=== PATIENT | male | born 1975 ===

== ENCOUNTER 2016-07-28 08:55 | Inpatient (IN) | payer OTHER ==
[2016-07-28] MEDS ORDERED: Sodium Chloride 0.9% 1,000 ML IV STA (09:38)
[2016-07-28] MEDS ORDERED: Lidocaine 5% Patch TD ONE (10:00)
[2016-07-28] MEDS ORDERED: Dexamethasone 10 MG in Sodium Chloride 0.9% 50 ML IV ONE (10:00)
--- NOTE | 2016-07-28 10:17 | ED PDOC ---
HPI: Back Time Seen by Provider: 07/28/16 09:17 Chief Complaint (Nursing): Back Pain Chief Complaint (Provider): Back Pain History Per: Patient History/Exam Limitations: no limitations Onset/Duration Of Symptoms: Days Current Symptoms Are (Timing): Still Present Quality Of Discomfort: "Pain" Severity: Moderate Previous Symptoms: None Associated Symptoms: None Additional Complaint(s): Patient is a 41 year old male who presents to ED for right lower back pain that began 9 days ago. Patient states pain began while sweeping felt like he" strained his back" with pain that worsened 2 days. Patient notes that he went to acupuncture, took a left over Percocet all without relief. Denies numbness, tingling or urinary changes. Notes mild pain to the right leg with attempts to ambulate. Applying a heat patch to area without relief . Past Medical History Reviewed: Historical Data, Nursing Documentation, Vital Signs Vital Signs: Last Vital Signs Temp 98.7 F 07/28/16 09:14 Pulse 76 07/28/16 09:14 Resp 18 07/28/16 09:14 BP 134/79 07/28/16 09:14 Pulse Ox 98 07/28/16 09:14 - Medical History PMH: No Chronic Diseases Denies: Chronic Kidney Disease - Surgical History Surgical History: No Surg Hx - Family History Family History: States: No Known Family Hx - Home Medications Home Medications: Ambulatory Orders Medication Instructions Recorded Cyclobenzaprine [Flexeril] 10 mg PO TID PRN #30 tab 07/30/16 Gabapentin [Neurontin] 300 mg PO BID #30 cap 07/30/16 Ibuprofen [Motrin Tab] 800 mg PO Q8H PRN #30 tab 07/30/16 oxyCODONE/Acetaminophen [Percocet 1 ea PO Q4 PRN #20 tab 07/30/16 5/325 mg Tab] - Allergies Allergies/Adverse Reactions: Allergies Allergy/AdvReac Type Severity Reaction Status Date / Time No Known Allergies Allergy Verified 07/28/16 09:36 Review of Systems ROS Statement: Except As Marked, All Systems Reviewed And Found Negative Constitutional: Negative for: Fever, Weakness Eyes: Negative for: Vision Change Genitourinary Male: Negative for: Dysuria, Frequency, Incontinence Musculoskeletal: Positive for: Back Pain, Leg Pain. Negative for: Neck Pain Neurological: Negative for: Weakness, Numbness Physical Exam - Reviewed Nursing Documentation Reviewed: Yes Vital Signs Reviewed: Yes - Physical Exam Appears: Positive for: Non-toxic, No Acute Distress Skin: Positive for: Normal Color, Warm Eye Exam: Positive for: Normal appearance Neck: Positive for: Normal, Painless ROM Gastrointestinal/Abdominal: Positive for: Normal Exam. Negative for: Tenderness , Distended Back: Positive for: Normal Inspection, Other (right lwoer lumbar and buttock tenderness. Full ROM hip). Negative for: Vertebral Tenderness, Decreased ROM Extremity: Positive for: Normal ROM Neurologic/Psych: Positive for: Alert, Oriented. Negative for: Motor/Sensory Deficits - Laboratory Results Result Diagrams: 07/30/16 05:25 07/30/16 05:25 - ECG O2 Sat by Pulse Oximetry: 98 (RA) Pulse Ox Interpretation: Normal Medical Decision Making Medical Decision Making: Time: 929 Initial impression: Back pain, Sciatica vs Lumbalgia Initial plan: -- Decadron -- Lidoderm patch -- NS bolus -- Toradol -- Valium 1145am pain persisting cannot ambulate; CT LS spine ordered. 1230pm placed in ED Observation given inability to ambulate with comorbidity of morbid obesity, severe low back pain. 230pm CT report reviewed, additional pain medication ordered as remains unable to get himself out of bed 4pm no improvement unable to ambulate and self-rise from bed, pain management Dr Corley to evaluate Accession No. : [id number] Patient Name / ID : IRWIN SANABRIA / [id number] Exam Date : 07/28/2016 13:37:15 ( Approved ) Study Comment : Sex / Age : M / [id number] Creator : Isaiah Mccormick MD Dictator : Isaiah Mccormick MD Pearl Maker : Asset Management Coordinator : Isaiah Mccormick MD Approver2 : Report Date : 07/28/2016 14:14:13 My Comment : PROCEDURE: CT Lumbar Spine without contrast HISTORY: low back pain radiating R leg COMPARISON: None. TECHNIQUE: Axial computed tomography images were obtained of the lumbar spine without the use of intravenous contrast. Coronal and sagittal reformatted images were created and reviewed. Radiation dose: Total exam DLP = 1489.22 mGy-cm. This CT exam was performed using one or more of the following dose reduction techniques: Automated exposure control, adjustment of the mA and/or kV according to patient size, and/or use of iterative reconstruction technique. FINDINGS: VERTEBRAE: No acute compression fractures nor retropulsed fragments. Vertebral bodies exhibit relatively normal stature. Minimal chronic appearing anterior stature loss of the T12 segment felt to be degenerative in origin. The remaining vertebral bodies otherwise exhibit normal stature. There appears to be a very subtle subclinical dextroscoliosis centered in the lower thoracic region Vertebral bodies otherwise exhibit normal alignment. Facets normally aligned. DISCS/SPINAL CANAL/NEURAL FORAMINA: There is mild disc space narrowing seen at the L5-S1 level more so along the posterior disc margin. Small broad-based disc bulge ridge complex results in some minimal flattening of the ventral surface of thecal sac however the overall central canal appears adequate. Facets are mildly overgrown. Exit foramina appear adequate. At the L4-L5 level, there is relatively adequate disc height. Small broad- based asymmetric disc bulge ridge complex slightly larger on the right than left with some extension into the proximal inferior margin of the right exit foramen. Changes result in some minor flattening the ventral surface of the thecal sac however the overall central canal is quite capacious. Facets are slightly overgrown. The exit foramina are adequate. Note made of minor degenerative changes left SI joint. PARASPINAL SOFT TISSUES: Unremarkable. OTHER FINDINGS: None. IMPRESSION: No acute fracture seen. Minor multilevel degenerative spondylosis as described Re-evals: 520pm- Dr Corley pain mgmt evaluated patient recommended MRI LS spine and med surg Obs will need acute interventional pain management via injection for pain relief. Patient cannot ambulate in ED due to pain, nor can raise self from bed. 540p d/w PMD group Humberto Mosley ANP for admission med surg obs. Basic labs pending. Scribe Attestation: Documented by Hollie Husain acting as a scribe for Teodoro Lopez DO MD Scribe Attestation: All medical record entries made by the Scribe were at my direction and personally dictated by me. I have reviewed the chart and agree that the record accurately reflects my personal performance of the history, physical exam, medical decision making, and the department course for this patient. I have also personally directed, reviewed, and agree with the discharge instructions and disposition. Disposition - Clinical Impression Clinical Impression: Back pain - Patient ED Disposition Is Patient to be Admitted: Yes Counseled Patient/Family Regarding: Studies Performed, Diagnosis - Disposition Disposition Time: 12:39 Condition: STABLE - Pt Status Changed To: Hospital Disposition Of: Observation - POA Present On Arrival: None
--- NOTE | 2016-07-28 14:15 | CT ---
PROCEDURE: CT Lumbar Spine without contrast HISTORY: low back pain radiating R leg COMPARISON: None. TECHNIQUE: Axial computed tomography images were obtained of the lumbar spine without the use of intravenous contrast. Coronal and sagittal reformatted images were created and reviewed. Radiation dose: Total exam DLP = 1489.22 mGy-cm. This CT exam was performed using one or more of the following dose reduction techniques: Automated exposure control, adjustment of the mA and/or kV according to patient size, and/or use of iterative reconstruction technique. FINDINGS: VERTEBRAE: No acute compression fractures nor retropulsed fragments. Vertebral bodies exhibit relatively normal stature. Minimal chronic appearing anterior stature loss of the T12 segment felt to be degenerative in origin. The remaining vertebral bodies otherwise exhibit normal stature. There appears to be a very subtle subclinical dextroscoliosis centered in the lower thoracic region Vertebral bodies otherwise exhibit normal alignment. Facets normally aligned. DISCS/SPINAL CANAL/NEURAL FORAMINA: There is mild disc space narrowing seen at the L5-S1 level more so along the posterior disc margin. Small broad-based disc bulge ridge complex results in some minimal flattening of the ventral surface of thecal sac however the overall central canal appears adequate. Facets are mildly overgrown. Exit foramina appear adequate. At the L4-L5 level, there is relatively adequate disc height. Small broad-based asymmetric disc bulge ridge complex slightly larger on the right than left with some extension into the proximal inferior margin of the right exit foramen. Changes result in some minor flattening the ventral surface of the thecal sac however the overall central canal is quite capacious. Facets are slightly overgrown. The exit foramina are adequate. Note made of minor degenerative changes left SI joint. PARASPINAL SOFT TISSUES: Unremarkable. OTHER FINDINGS: None. IMPRESSION: No acute fracture seen. Minor multilevel degenerative spondylosis as described
[2016-07-28] MEDS ORDERED: HYDROmorphone 0.5 mg/0.5 ml ISec IVP STA (14:41)
[2016-07-28] MEDS: Oxycodone/Acetaminophen 5/325 mg Tab PO STA ×2 (16:32→17:19)
[2016-07-28] MEDS ORDERED: Oxycodone/Acetaminophen 5/325 mg Tab ONE (17:08)
--- NOTE | 2016-07-28 17:44 | CP.PCM.CON ---
History of Present Illness - History of Present Illness History of Present Illness: 41 yo man presented with acute lower back pain for 10 days. He twisted the wrong way while sweeping about 10 days ago and the pain continued to worsen despite rest and treatment, progressing to the point he couldn't walk over the weekend. He denies previous pain history prior to this episode. Pain is sharp , constant, over right lower back region. When upright the pain radiates into the right thigh. He denies paresthesia or incontinence or pain on the left side. He tried massage therapy and acupuncture x 1 session without relief. He tried Percocet/Zanaflex/Naproxen at home without relief. CT in ER showed L4-5, L5-S1 disc bulges. Past Patient History - Past Social History Smoking Status: Never Smoked - CARDIAC Hx Cardiac Disorders: No - PULMONARY Hx Respiratory Disorders: No - NEUROLOGICAL Hx Neurological Disorder: No - HEENT Hx HEENT Problems: No - RENAL Hx Chronic Kidney Disease: No - ENDOCRINE/METABOLIC Hx Endocrine Disorders: No - HEMATOLOGICAL/ONCOLOGICAL Hx Blood Disorders: No - INTEGUMENTARY Hx Dermatological Problems: No - MUSCULOSKELETAL/RHEUMATOLOGICAL Hx Musculoskeletal Disorders: No - GASTROINTESTINAL Hx Gastrointestinal Disorders: No - GENITOURINARY/GYNECOLOGICAL Hx Genitourinary Disorders: No - PSYCHIATRIC Hx Psychophysiologic Disorder: No Hx Substance Use: No - SURGICAL HISTORY Hx Surgeries: No - ANESTHESIA Hx Anesthesia: No Meds Allergies/Adverse Reactions: Allergies Allergy/AdvReac Type Severity Reaction Status Date / Time No Known Allergies Allergy Verified 07/28/16 09:36 Physical Exam - Back Exam Back exam: paraspinal tenderness, vertebral tenderness - Neurological Exam Additional comments: Sensory intact, motor diminished on right due to pain Results - Vital Signs Recent Vital Signs: Last Vital Signs Temp 98.7 F 07/28/16 09:14 Pulse 76 07/28/16 09:14 Resp 18 07/28/16 09:14 BP 134/79 07/28/16 09:14 Pulse Ox 98 07/28/16 14:43 Assessment & Plan - Assessment and Plan (Free Text) Assessment: 41 yo w/ acute lower back pain from L4-5, L5-S1 spondylotic changes. - MRI of lumbar spine - start Dilaudid 1mg IV q4h PRN - start Flexeril 10mg q8h - PT eval - pending MRI result, will consider injection tomorrow - hold NSAIDs for possible injection - NPO after midnight
[2016-07-28 18:11] LABS: BASO % 0.1 % (0.0-2.0); HEMATOCRIT 41.4 % (35.0-51.0); LYMPH # 0.6 K/uL (1.0-4.3); LYMPH % 9.9 % (20.0-40.0); MEAN CELL VOLUME 86.4 fl (80.0-94.0); MEAN CORPUSCULAR HEMOGLOBIN 29.2 pg (27.0-31.0); MEAN CORPUSCULAR HGB CONC 33.9 g/dL (33.0-37.0); MEAN PLATELET VOLUME 8.7 fl (7.2-11.7); MONO % 0.6 % (0.0-10.0); NEUT # 5.5 K/uL (1.8-7.0); NEUT % 89.4 % (50.0-75.0); NRBC % 0.1 % (0.0-0.0); PLATELET COUNT 175 K/uL (130-400); WHITE BLOOD COUNT 6.2 K/uL (4.8-10.8)
[2016-07-28 18:25] LABS: ALKALINE PHOSPHATASE 76 U/L (38-126); ALT/SGPT 48 U/L (21-72); AST/SGOT 32 U/L (17-59); BILIRUBIN,TOTAL 0.4 mg/dl (0.2-1.3); BLOOD UREA NITROGEN 15 mg/dl (9-20); CALCIUM 8.8 mg/dL (8.4-10.2); CARBON DIOXIDE 20 mmol/L (22-30); CHLORIDE 109 mmol/L (98-107); GFR AFRICAN-AMERICAN > 60; GLUCOSE,RANDOM 181 mg/dL (75-110); POTASSIUM 4.3 MMOL/L (3.6-5.0); SODIUM 143 mmol/l (132-148)
[2016-07-28 18:40] LABS: PARTIAL THROMBOPLASTIN TIME 25.9 SECONDS (23.3-32.5)
[2016-07-28 19:44] LABS: NEUTROPHIL 89 % (42-75); TOTAL CELLS COUNTED 100
[2016-07-29] MEDS: HYDROmorphone 0.5 mg/0.5 ml ISec IVP PRN ×3 (04:43→15:43)
--- NOTE | 2016-07-29 07:10 | CP.PCM.HP ---
History of Present Illness - History of Present Illness History of Present Illness: pt admitted for lumbar pain progressive x 10 days after swepping, after massage pt felt worse and was unable to walk. denies numbness/tingling in ble. mri noted:1. At L3-L4, mild disc desiccation. Disc bulge, prominent posterior epidural fat, and mild facet arthrosis with superimposed right extraforaminal disc protrusion result in mild to moderate canal stenosis and mild left and moderate right foraminal stenosis. 2. At L4-L5, right extraforaminal disc protrusion results in no canal and mild left and moderate right foraminal stenosis. bw and imaging noted anesthesia/pm/r on consult. possible injection today. no med/surg hx. Present on Admission - Present on Admission Any Indicators Present on Admission: No Review of Systems - Musculoskeletal Musculoskeletal: As Per HPI, Back Pain Past Patient History - Past Medical History & Family History Past Medical History?: Yes - Past Social History Smoking Status: electronic - CARDIAC Hx Cardiac Disorders: No - PULMONARY Hx Respiratory Disorders: No - NEUROLOGICAL Hx Neurological Disorder: No - HEENT Hx HEENT Problems: No - RENAL Hx Chronic Kidney Disease: No - ENDOCRINE/METABOLIC Hx Endocrine Disorders: No - HEMATOLOGICAL/ONCOLOGICAL Hx Blood Disorders: No - INTEGUMENTARY Hx Dermatological Problems: No - MUSCULOSKELETAL/RHEUMATOLOGICAL Hx Musculoskeletal Disorders: No Hx Falls: No - GASTROINTESTINAL Hx Gastrointestinal Disorders: No - GENITOURINARY/GYNECOLOGICAL Hx Genitourinary Disorders: No - PSYCHIATRIC Hx Psychophysiologic Disorder: No Hx Substance Use: No - SURGICAL HISTORY Hx Surgeries: Yes Other/Comment: Right Plantar Fasciitis - 4 years ago - ANESTHESIA Hx Anesthesia: Yes Hx Anesthesia Reactions: No Hx Malignant Hyperthermia: No Has any member of the family had a problem w/ anesthesia?: No Meds Allergies/Adverse Reactions: Allergies Allergy/AdvReac Type Severity Reaction Status Date / Time No Known Allergies Allergy Verified 07/28/16 09:36 Physical Exam - Constitutional Appears: Well, Non-toxic, No Acute Distress - Head Exam Head Exam: ATRAUMATIC, NORMAL INSPECTION, NORMOCEPHALIC - Eye Exam Eye Exam: EOMI, Normal appearance, PERRL Pupil Exam: NORMAL ACCOMODATION, PERRL - ENT Exam ENT Exam: Mucous Membranes Moist, Normal Exam - Neck Exam Neck exam: Positive for: Normal Inspection - Respiratory Exam Respiratory Exam: Clear to Auscultation Bilateral, NORMAL BREATHING PATTERN - Cardiovascular Exam Cardiovascular Exam: REGULAR RHYTHM, RRR, +S1, +S2 - GI/Abdominal Exam GI & Abdominal Exam: Normal Bowel Sounds, Soft. absent: Tenderness - Extremities Exam Extremities exam: Positive for: full ROM, normal capillary refill, normal inspection, pedal pulses present - Back Exam Back exam: muscle spasm, NORMAL INSPECTION, paraspinal tenderness - Neurological Exam Neurological exam: Alert, CN II-XII Intact, Normal Gait, Oriented x3, Reflexes Normal - Psychiatric Exam Psychiatric exam: Normal Affect, Normal Mood - Skin Skin Exam: Dry, Intact, Normal Color, Warm Results - Vital Signs Recent Vital Signs: Last Vital Signs Temp 98.3 F 07/29/16 01:00 Pulse 76 07/29/16 01:00 Resp 20 07/29/16 01:00 BP 130/70 07/28/16 18:21 Pulse Ox 96 07/29/16 01:00 - Labs Result Diagrams: 07/29/16 05:25 07/29/16 05:25 Labs: Laboratory Results - last 24 hr 07/28/16 07/28/16 17:35 17:55 WBC 6.2 RBC 4.79 Hgb 14.0 Hct 41.4 MCV 86.4 MCH 29.2 MCHC 33.9 RDW 14.0 Plt Count 175 MPV 8.7 Neut % (Auto) 89.4 H Lymph % (Auto) 9.9 L Bucks % (Auto) 0.6 Eos % (Auto) 0.0 Baso % (Auto) 0.1 Neut # 5.5 Lymph # 0.6 L Bucks # 0.0 Eos # 0.0 Baso # 0.0 Neutrophils % (Manual) 89 H Band Neutrophils % 1 Lymphocytes % (Manual) 8 L Monocytes % (Manual) 2 Platelet Estimate Normal PT 10.9 INR 1.05 APTT 25.9 Sodium 143 Potassium 4.3 Chloride 109 H Carbon Dioxide 20 L Anion Gap 18 BUN 15 Creatinine 0.7 L Est GFR ( Amer) > 60 Est GFR (Non-Af Amer) > 60 Random Glucose 181 H Calcium 8.8 Total Bilirubin 0.4 AST 32 ALT 48 Alkaline Phosphatase 76 Total Protein 8.0 Albumin 3.9 Globulin 4.1 H Albumin/Globulin Ratio 1.0 Assessment & Plan (1) Lumbar paraspinal muscle spasm Assessment and Plan: flexeril, dilaudid, steroids, mri report noted pm/r consult possible injection today pt/ot eval possible dc today Status: Acute (2) DVT prophylaxis Assessment and Plan: scd nad ae hosem lovenox if admitted over 24h Status: Acute Decision To Admit - Pt Status Changed To: Hospital Disposition Of: Observation - . Bed Request Type: Med/Surg Admitting Physician: Perez Person
[2016-07-29 07:43] LABS: BASO % 0.1 % (0.0-2.0); EOS % 0.1 % (0.0-4.0); HEMATOCRIT 39.3 % (35.0-51.0); LYMPH # 1.5 K/uL (1.0-4.3); LYMPH % 14.2 % (20.0-40.0); MEAN CELL VOLUME 87.2 fl (80.0-94.0); MEAN CORPUSCULAR HEMOGLOBIN 29.4 pg (27.0-31.0); MEAN CORPUSCULAR HGB CONC 33.8 g/dL (33.0-37.0); MONO # 0.6 K/uL (0.0-0.8); MONO % 5.8 % (0.0-10.0); NEUT # 8.2 K/uL (1.8-7.0); NEUT % 79.8 % (50.0-75.0); NRBC % 0.1 % (0.0-0.0); RED CELL DISTRIBUTION WIDTH 14.1 % (11.5-14.5)
[2016-07-29 07:45] LABS: WHITE BLOOD COUNT 10.3 K/uL (4.8-10.8)
[2016-07-29 07:54] LABS: ALKALINE PHOSPHATASE 62 U/L (38-126); ALT/SGPT 34 U/L (21-72); AST/SGOT 24 U/L (17-59); BILIRUBIN,TOTAL 0.4 mg/dl (0.2-1.3); BLOOD UREA NITROGEN 16 mg/dl (9-20); CALCIUM 8.7 mg/dL (8.4-10.2); CARBON DIOXIDE 24 mmol/L (22-30); CHLORIDE 108 mmol/L (98-107); GFR AFRICAN-AMERICAN > 60; GLUCOSE,RANDOM 122 mg/dL (75-110); POTASSIUM 4.1 MMOL/L (3.6-5.0); SODIUM 144 mmol/l (132-148); TOTAL PROTEIN 7.6 G/DL (6.3-8.2)
[2016-07-29] MEDS ORDERED: MethylPREDNISolone Depo 40 mg/ml Inj ONE (12:55)
[2016-07-29] MEDS ORDERED: Lidocaine 1% Inj (20ml) ONE (12:56)
[2016-07-29] MEDS ORDERED: Iohexol 300 10 ML ONE (12:56)
[2016-07-29] MEDS ORDERED: Bupivacaine HCl 0.25% PF (10 ml) Inj ONE (12:56)
[2016-07-29] MEDS ORDERED: Lidocaine 1% Inj (20ml) IJ ONE (13:32)
[2016-07-29] MEDS ORDERED: Iohexol 300 10 ML IJ ONE (13:32)
[2016-07-29] MEDS ORDERED: MethylPREDNISolone Depo 40 mg/ml Inj IM ONE (13:32)
[2016-07-29] MEDS ORDERED: Bupivacaine HCl 0.25% PF (10 ml) Inj IJ ONE (13:32)
--- NOTE | 2016-07-29 13:47 | CP.PCM.PN ---
Subjective - Date & Time of Evaluation Date of Evaluation: 07/29/16 Time of Evaluation: 13:30 - Subjective Subjective: Patient is s/p lumbar epidural for lumbar spinal stenosis. He's resting in PACU. R/B/A were explained to the patient and he agreed to proceed. Since admission, the pain is largely unchanged despite medications. Objective - Vital Signs/Intake and Output Vital Signs (last 24 hours): Temp Pulse Resp BP Pulse Ox 97.8 F 83 20 106/66 99 07/29/16 07:54 07/29/16 07:54 07/29/16 07:54 07/29/16 07:54 07/29/16 07:54 - Medications Medications: Current Medications Cyclobenzaprine HCl (Flexeril) 10 mg PO TID PRN PRN Reason: Muscle spasm Hydromorphone HCl (Dilaudid) 1 mg IVP Q4 PRN PRN Reason: Pain, severe (8-10) Last Admin: 07/29/16 09:47 Dose: 1 mg Morphine Sulfate (Morphine) 2 mg IVP Q4 PRN PRN Reason: Pain, moderate (4-7) Last Admin: 07/28/16 23:13 Dose: 2 mg - Labs Labs: 07/29/16 05:25 07/29/16 05:25 PT 10.9 SECONDS (9.6-11.2) 07/28/16 17:35 INR 1.05 (0.92-1.08) 07/28/16 17:35 APTT 25.9 SECONDS (23.3-32.5) 07/28/16 17:35 - Respiratory Exam Respiratory Exam: NORMAL BREATHING PATTERN - Cardiovascular Exam Cardiovascular Exam: REGULAR RHYTHM - Back Exam Back Exam: paraspinal tenderness, vertebral tenderness Assessment and Plan - Assessment and Plan (Free Text) Assessment: 41 yo man w/ mild to moderate lumbar stenosis from spondylosis. He's s/p lumbar epidural today. - patient may be discharged with outpatient pain management follow-up - PT eval - continue Flexeril, patient may be sent home on Percocet and Ibuprofen 800mg
--- NOTE | 2016-07-29 14:45 | OP ---
PROCEDURE DATE: 07/29/2016 PREOPERATIVE DIAGNOSIS: Lumbar radiculopathy. POSTOPERATIVE DIAGNOSIS: Lumbar radiculopathy. PROCEDURE: Right L3-4, L4-5 and L5-S1 transforaminal epidural steroid injection. ANESTHESIOLOGIST: None. ANESTHESIA TYPE: Local anesthesia. COMPLICATIONS: None. SPECIMEN: None. The patient was placed on the fluoroscopy table in a prone position with 2 pillows underneath his abd omen. The back was prepped and draped in a usual sterile fashion and sterile technique was adhered t o during the entire procedure. The L3, L4, and L5 vertebral levels were first identified in anterior -posterior view. Then angulation towards the right at approximately 20 degrees was obtained to maxim ize the visualization of the right L3, L4, and L5 pedicles. The skin overlying the 6 o'clock positio n of both pedicles was then infiltrated with 1% lidocaine using a 25-gauge needle. Subsequently, a 2 2-gauge 5 inch spinal needle was then incrementally advanced under fluoroscopic guidance until tip of needle walked into the intervertebral foramen. This was confirmed on the anterior-posterior view an d the lateral views. After satisfactory positioning of all 3 needles, approximately 0.5 mL of Isovue contrast was injected showing appropriate epidural spread without any signs of CSF or intravenous in volvement. At this point, approximately 3 mL of a 0.25% Marcaine and Depo-Medrol mixture was injecte d. The needle was then removed and the patient's back was cleaned and dried and Band-Aids were appli ed. The patient was then transferred to recovery area in good condition without any signs of STRIP CLEANER toxicity or any neurological deficit. He will be evaluated by physical therapy and may be discharged for out patient, pain management followup. En-Willam Corley MD cc: [id number] TT: 07/29/2016 14:44:47 tn
--- NOTE | 2016-07-29 15:26 | RAD ---
PROCEDURE: Lumbar Epidural Injection HISTORY: PAIN MANAGEMENT TECHNIQUE: Fluoroscopic guidance was provided for epidural injection for pain management purposes. FINDINGS: IMPRESSION: Fluoroscopic guidance provided for epidural injection. Please refer procedure.
--- NOTE | 2016-07-29 16:56 | MRI ---
P THE THE: MRI of lumbar spine 07/28/2016 HISTORY: History: Severe low back pain (right), inabilty to ambulate COMPARISON: Comparison made with CT scan of the lumbar spine 07/28/2016. TECHNIQUE: Multiecho multiplanar sequences were performed through the lumbar spine without the use of intravenous contrast. FINDINGS: Findings: The current study reveals no acute compression fractures nor retropulsed fragments. . The. Vertebral minor chronic appearing Schmorl's nodes seen along the superior L1 endplate. Vertebral bodies otherwise exhibit normal stature. Vertebral bodies and facets normally aligned. There is mild disc desiccation at the L5-S1 level and mild posterior disc space narrowing. Small the central and bilateral disc bulge surface of the thecal sac minimally indents/flattens the ventral surface of the thecal sac however the overall central bony canal at this level is quite capacious. There appears to be a tiny annular fissure in the posterior annulus. Facet joints are mildly hypertrophic. The the disc bulge extends slightly into the proximal inferior margin of the left exit foramen and less so on the right. The exit foramina however are adequate. At the L4-L5 level, there is mild age related disc desiccation. It disc space heights relatively maintained. There is minor right proximal foraminal disc bulging that does result in mild compression of the right-sided L4 foraminal nerve root. The overall central canal appears quite capacious at this level. Left exit foramen is adequate. Facet joints are slightly hypertrophic. At the L 3 L4 level, there is mild disc desiccation. Disc space height maintained. Minimal proximal bilateral foraminal disc bulging changes are present. The facets are mildly hypertrophic. Central canal appears adequate. Exit foramina are also adequate. The remaining levels exhibit adequate disc height and hydration. No disc herniations nor significant disc bulges. Central canal and exit foramina appear adequate despite prominent facets at each of L2-L3 and to a lesser degree L1-L2 levels. The conus terminates at approximately the L1-L2 level. Paraspinal soft tissues unremarkable. IMPRESSION0: No acute compression fractures. Minor multilevel degenerative spondylosis L4-L5, L5-S1 and less of the L3-L4 levels as described.
[2016-07-30] MEDS: HYDROmorphone 0.5 mg/0.5 ml ISec IVP PRN ×3 (01:15→18:22)
[2016-07-30 07:38] LABS: BASO % 0.2 % (0.0-2.0); EOS % 0.6 % (0.0-4.0); LYMPH # 2.1 K/uL (1.0-4.3); LYMPH % 26.2 % (20.0-40.0); MEAN CELL VOLUME 86.7 fl (80.0-94.0); MEAN CORPUSCULAR HEMOGLOBIN 29.7 pg (27.0-31.0); MEAN CORPUSCULAR HGB CONC 34.2 g/dL (33.0-37.0); MEAN PLATELET VOLUME 8.7 fl (7.2-11.7); MONO # 0.4 K/uL (0.0-0.8); MONO % 5.2 % (0.0-10.0); NEUT # 5.5 K/uL (1.8-7.0); NEUT % 67.8 % (50.0-75.0); NRBC % 0.2 % (0.0-0.0); WHITE BLOOD COUNT 8.1 K/uL (4.8-10.8)
[2016-07-30 07:43] LABS: ALKALINE PHOSPHATASE 56 U/L (38-126); ALT/SGPT 49 U/L (21-72); AST/SGOT 31 U/L (17-59); BILIRUBIN,TOTAL 0.5 mg/dl (0.2-1.3); BLOOD UREA NITROGEN 18 mg/dl (9-20); CALCIUM 8.8 mg/dL (8.4-10.2); CARBON DIOXIDE 26 mmol/L (22-30); CHLORIDE 106 mmol/L (98-107); GFR AFRICAN-AMERICAN > 60; GLUCOSE,RANDOM 105 mg/dL (75-110); POTASSIUM 4.2 MMOL/L (3.6-5.0); SODIUM 143 mmol/l (132-148); TOTAL PROTEIN 7.5 G/DL (6.3-8.2)
--- NOTE | 2016-07-30 08:15 | CP.PCM.PN ---
Subjective - Date & Time of Evaluation Date of Evaluation: 07/30/16 Time of Evaluation: 08:13 - Subjective Subjective: still w/ pain now in r leg. no numbness/tingling. walking w/ walker. has incr rom after epidural yesterday. cleared by anesthesia. bw ntoed. able to ambulate w/ support Objective - Vital Signs/Intake and Output Vital Signs (last 24 hours): Temp Pulse Resp BP Pulse Ox 97.8 F 49 L 20 125/79 92 L 07/30/16 07:57 07/30/16 07:57 07/30/16 07:57 07/30/16 07:57 07/30/16 07:57 - Medications Medications: Current Medications Cyclobenzaprine HCl (Flexeril) 10 mg PO TID PRN PRN Reason: Muscle spasm Last Admin: 07/29/16 18:51 Dose: 10 mg Hydromorphone HCl (Dilaudid) 1 mg IVP Q4 PRN PRN Reason: Pain, severe (8-10) Last Admin: 07/30/16 01:15 Dose: 1 mg Morphine Sulfate (Morphine) 2 mg IVP Q4 PRN PRN Reason: Pain, moderate (4-7) Last Admin: 07/30/16 03:15 Dose: 2 mg - Labs Labs: 07/30/16 05:25 07/30/16 05:25 PT 10.9 SECONDS (9.6-11.2) 07/28/16 17:35 INR 1.05 (0.92-1.08) 07/28/16 17:35 APTT 25.9 SECONDS (23.3-32.5) 07/28/16 17:35 - Constitutional Appears: Well, Non-toxic, No Acute Distress - Head Exam Head Exam: ATRAUMATIC, NORMAL INSPECTION, NORMOCEPHALIC - Eye Exam Eye Exam: EOMI, Normal appearance, PERRL Pupil Exam: NORMAL ACCOMODATION, PERRL - ENT Exam ENT Exam: Mucous Membranes Moist, Normal Exam - Neck Exam Neck Exam: Full ROM, Normal Inspection. absent: Lymphadenopathy - Respiratory Exam Respiratory Exam: Clear to Ausculation Bilateral, NORMAL BREATHING PATTERN - Cardiovascular Exam Cardiovascular Exam: REGULAR RHYTHM, RRR, +S1, +S2. absent: Murmur - GI/Abdominal Exam GI & Abdominal Exam: Soft, Normal Bowel Sounds. absent: Tenderness - Extremities Exam Extremities Exam: Full ROM, Normal Capillary Refill, Normal Inspection. absent : Joint Swelling, Pedal Edema - Back Exam Back Exam: muscle spasm, NORMAL INSPECTION, paraspinal tenderness, tenderness - Neurological Exam Neurological Exam: Alert, Awake, CN II-XII Intact, Normal Gait, Oriented x3 - Psychiatric Exam Psychiatric exam: Normal Affect, Normal Mood - Skin Skin Exam: Dry, Intact, Normal Color, Warm Assessment and Plan (1) Lumbar paraspinal muscle spasm Status: Acute (2) DVT prophylaxis Status: Acute - Assessment and Plan (Free Text) Assessment: (1) Lumbar paraspinal muscle spasm Assessment and Plan: flexeril, dilaudid, steroids, mri report noted pm/r consult cleared by epidural pt/ot eval possible dc today s/p epidural Status: Acute (2) DVT prophylaxis Assessment and Plan: scd [facility]uro lozano if admitted over 24h Status: Acute
--- NOTE | 2016-07-30 08:30 | CP.PCM.PN ---
Subjective - Date & Time of Evaluation Date of Evaluation: 07/30/16 Time of Evaluation: 08:00 - Subjective Subjective: Patient is s/p lumbar epidural steroid injection for mild to moderate lumbar spinal stenosis. The lower back pain is improved but he has some irritation over the right thigh. He was able to ambulate in his room to the bathroom but hasn't walked the hallway with PT yet. He's been able to tolerate the current regimen. Objective - Vital Signs/Intake and Output Vital Signs (last 24 hours): Temp Pulse Resp BP Pulse Ox 97.8 F 49 L 20 125/79 92 L 07/30/16 07:57 07/30/16 07:57 07/30/16 07:57 07/30/16 07:57 07/30/16 07:57 - Medications Medications: Current Medications Cyclobenzaprine HCl (Flexeril) 10 mg PO TID PRN PRN Reason: Muscle spasm Last Admin: 07/29/16 18:51 Dose: 10 mg Hydromorphone HCl (Dilaudid) 1 mg IVP Q4 PRN PRN Reason: Pain, severe (8-10) Last Admin: 07/30/16 01:15 Dose: 1 mg Morphine Sulfate (Morphine) 2 mg IVP Q4 PRN PRN Reason: Pain, moderate (4-7) Last Admin: 07/30/16 03:15 Dose: 2 mg - Labs Labs: 07/30/16 05:25 07/30/16 05:25 PT 10.9 SECONDS (9.6-11.2) 07/28/16 17:35 INR 1.05 (0.92-1.08) 07/28/16 17:35 APTT 25.9 SECONDS (23.3-32.5) 07/28/16 17:35 - Respiratory Exam Respiratory Exam: NORMAL BREATHING PATTERN - Cardiovascular Exam Cardiovascular Exam: REGULAR RHYTHM - Back Exam Back Exam: paraspinal tenderness, vertebral tenderness Assessment and Plan - Assessment and Plan (Free Text) Assessment: 41 yo man w/ mild lumbar spondylosis, s/p LESI. - patient can be discharged on Percocet, Ibuprofen, Neurontin and Flexeril - outpatient PT - patient needs to follow up with PMD in 1-2 weeks
[2016-07-31] MEDS: HYDROmorphone 0.5 mg/0.5 ml ISec IVP PRN ×4 (00:27→15:34)
--- NOTE | 2016-07-31 07:28 | CP.PCM.PN ---
Subjective - Date & Time of Evaluation Date of Evaluation: 07/31/16 Time of Evaluation: 07:28 - Subjective Subjective: pt still w/ pain radiating down rle. difficulty walking w/ PT yesterday for TRISTAN. no f/c, n/v/d. no urinary/bowel retention/incontinence reported. Objective - Vital Signs/Intake and Output Vital Signs (last 24 hours): Temp Pulse Resp BP Pulse Ox 98.5 F 85 18 132/78 96 07/30/16 21:28 07/30/16 21:28 07/30/16 21:28 07/30/16 21:28 07/30/16 21:28 - Medications Medications: Current Medications Cyclobenzaprine HCl (Flexeril) 10 mg PO TID PRN PRN Reason: Muscle spasm Last Admin: 07/30/16 19:53 Dose: 10 mg Gabapentin (Neurontin) 300 mg PO BID CRISTO Last Admin: 07/30/16 18:19 Dose: 300 mg Hydromorphone HCl (Dilaudid) 1 mg IVP Q4 PRN PRN Reason: Pain, severe (8-10) Last Admin: 07/31/16 05:19 Dose: 1 mg Morphine Sulfate (Morphine) 2 mg IVP Q4 PRN PRN Reason: Pain, moderate (4-7) Last Admin: 07/30/16 23:03 Dose: 2 mg - Labs Labs: 07/30/16 05:25 07/30/16 05:25 PT 10.9 SECONDS (9.6-11.2) 07/28/16 17:35 INR 1.05 (0.92-1.08) 07/28/16 17:35 APTT 25.9 SECONDS (23.3-32.5) 07/28/16 17:35 - Constitutional Appears: Well, Non-toxic, No Acute Distress - Head Exam Head Exam: ATRAUMATIC, NORMAL INSPECTION, NORMOCEPHALIC - Eye Exam Eye Exam: EOMI, Normal appearance, PERRL Pupil Exam: NORMAL ACCOMODATION, PERRL - ENT Exam ENT Exam: Mucous Membranes Moist, Normal Exam - Neck Exam Neck Exam: Full ROM, Normal Inspection. absent: Lymphadenopathy - Respiratory Exam Respiratory Exam: Clear to Ausculation Bilateral, NORMAL BREATHING PATTERN - Cardiovascular Exam Cardiovascular Exam: REGULAR RHYTHM, RRR, +S1, +S2. absent: Murmur - GI/Abdominal Exam GI & Abdominal Exam: Soft, Normal Bowel Sounds. absent: Tenderness - Extremities Exam Extremities Exam: Full ROM, Normal Capillary Refill, Normal Inspection. absent : Joint Swelling, Pedal Edema - Back Exam Back Exam: NORMAL INSPECTION - Neurological Exam Neurological Exam: Alert, Awake, CN II-XII Intact, Normal Gait, Oriented x3 - Psychiatric Exam Psychiatric exam: Normal Affect, Normal Mood - Skin Skin Exam: Dry, Intact, Normal Color, Warm Assessment and Plan (1) Lumbar paraspinal muscle spasm Status: Acute (2) DVT prophylaxis Status: Acute - Assessment and Plan (Free Text) Assessment: (1) Lumbar paraspinal muscle spasm Assessment and Plan: flexeril, dilaudid, steroids, mri report noted pm/r consult cleared by epidural pt/ot eval possible dc today s/p epidural for tristan today Status: Acute (2) DVT prophylaxis Assessment and Plan: scd nad ae hosem lovenox if admitted over 24h Status: Acute
[2016-07-31 08:15] VITALS: RESP 20
--- NOTE | 2016-07-31 15:23 | CP.PCM.DIS ---
Provider - Provider Date of Admission: 07/29/16 16:35 Attending physician: Perez Person MD Time Spent in preparation of Discharge (in minutes): 15 Diagnosis - Discharge Diagnosis (1) Lumbar paraspinal muscle spasm Status: Acute (2) DVT prophylaxis Status: Acute Hospital Course - Lab Results Lab Results: Most Recent Lab Values WBC 8.1 K/uL (4.8-10.8) 07/30/16 05:25 RBC 4.61 Mil/uL (4.40-5.90) 07/30/16 05:25 Hgb 13.7 g/dL (12.0-18.0) 07/30/16 05:25 Hct 40.0 % (35.0-51.0) 07/30/16 05:25 MCV 86.7 fl (80.0-94.0) 07/30/16 05:25 MCH 29.7 pg (27.0-31.0) 07/30/16 05:25 MCHC 34.2 g/dL (33.0-37.0) 07/30/16 05:25 RDW 14.0 % (11.5-14.5) 07/30/16 05:25 Plt Count 195 K/uL (130-400) 07/30/16 05:25 MPV 8.7 fl (7.2-11.7) 07/30/16 05:25 Neut % (Auto) 67.8 % (50.0-75.0) 07/30/16 05:25 Lymph % (Auto) 26.2 % (20.0-40.0) 07/30/16 05:25 [place] % (Auto) 5.2 % (0.0-10.0) 07/30/16 05:25 Eos % (Auto) 0.6 % (0.0-4.0) 07/30/16 05:25 Baso % (Auto) 0.2 % (0.0-2.0) 07/30/16 05:25 Neut # 5.5 K/uL (1.8-7.0) 07/30/16 05:25 Lymph # 2.1 K/uL (1.0-4.3) 07/30/16 05:25 [place] # 0.4 K/uL (0.0-0.8) 07/30/16 05:25 Eos # 0.0 K/uL (0.0-0.7) 07/30/16 05:25 Baso # 0.0 K/uL (0.0-0.2) 07/30/16 05:25 Neutrophils % (Manual) 89 % (42-75) H 07/28/16 17:35 Band Neutrophils % 1 % (0-2) 07/28/16 17:35 Lymphocytes % (Manual) 8 % (20-50) L 07/28/16 17:35 Monocytes % (Manual) 2 % (0-10) 07/28/16 17:35 Platelet Estimate Normal (NORMAL) 07/28/16 17:35 PT 10.9 SECONDS (9.6-11.2) 07/28/16 17:35 INR 1.05 (0.92-1.08) 07/28/16 17:35 APTT 25.9 SECONDS (23.3-32.5) 07/28/16 17:35 Sodium 143 mmol/l (132-148) 07/30/16 05:25 Potassium 4.2 MMOL/L (3.6-5.0) 07/30/16 05:25 Chloride 106 mmol/L (98-107) 07/30/16 05:25 Carbon Dioxide 26 mmol/L (22-30) 07/30/16 05:25 Anion Gap 16 (10-20) 07/30/16 05:25 BUN 18 mg/dl (9-20) 07/30/16 05:25 Creatinine 0.6 mg/dL (0.8-1.5) L 07/30/16 05:25 Est GFR ( Amer) > 60 07/30/16 05:25 Est GFR (Non-Af Amer) > 60 07/30/16 05:25 Random Glucose 105 mg/dL (75-110) 07/30/16 05:25 Calcium 8.8 mg/dL (8.4-10.2) 07/30/16 05:25 Total Bilirubin 0.5 mg/dl (0.2-1.3) 07/30/16 05:25 AST 31 U/L (17-59) 07/30/16 05:25 ALT 49 U/L (21-72) 07/30/16 05:25 Alkaline Phosphatase 56 U/L (38-126) 07/30/16 05:25 Total Protein 7.5 G/DL (6.3-8.2) 07/30/16 05:25 Albumin 3.8 g/dL (3.5-5.0) 07/30/16 05:25 Globulin 3.7 gm/dL (2.2-3.9) 07/30/16 05:25 Albumin/Globulin Ratio 1.0 (1.0-2.1) 07/30/16 05:25 Discharge Exam - Head Exam Head Exam: ATRAUMATIC, NORMAL INSPECTION, NORMOCEPHALIC Discharge Plan - Discharge Medications Prescriptions: Cyclobenzaprine [Flexeril] 10 mg PO TID PRN #30 tab PRN Reason: Muscle Spasm Ibuprofen [Motrin Tab] 800 mg PO Q8H PRN #30 tab PRN Reason: pain 2-10 Gabapentin [Neurontin] 300 mg PO BID #30 cap oxyCODONE/Acetaminophen [Percocet 5/325 mg Tab] 1 ea PO Q4 PRN #20 tab PRN Reason: pains - Follow Up Plan Condition: FAIR Disposition: REHAB FACILITY/REHAB UNIT Instructions: Gabapentin (By mouth) Additional Instructions: pt for dc to [facility]. rted prn, med spe rmed rec. pt for pt/ot for lumbar radicular pain final dx lumbar radiculitis.
[2016-07-31 16:55] VITALS: BP 144/87; PULSE 64; TEMP 97.7
[2016-08-02 16:18] VITALS: O2SAT 98
== END 2016-07-31 18:00 | DRG 552 ==
LOC: H.ER 08:55 → H.EROBSV 12:39 → H.ERHOLD 17:49 → H.MEDSURG1 21:24 → OBSVTOIN 07-29 16:35 → H.MEDSURG1 07-31 09:34
PROVIDERS: ADMIT Family Medicine; ATTEND Family Medicine
PROC: 3E0R33Z Introduction of Anti-inflammatory into Spinal Canal, Percutaneous Approach (ICD-10-PCS; 2016-07-29)
PROC: 3E0R3BZ Introduction of Anesthetic Agent into Spinal Canal, Percutaneous Approach (ICD-10-PCS; principal; 2016-07-29 12:30)
DX: M48.07 Spinal stenosis, lumbosacral region (principal); Z68.41 Body mass index [BMI] 40.0-44.9, adult; M47.27 Other spondylosis with radiculopathy, lumbosacral region; E66.01 Morbid (severe) obesity due to excess calories; X50.1XXA Overexertion from prolonged static or awkward postures, initial encounter; Y93.9 Activity, unspecified; Y92.9 Unspecified place or not applicable; M62.830 Muscle spasm of back